=== PATIENT | female | born 1955 | race African-American/Black ===

== ENCOUNTER 2017-08-23 20:01 | Inpatient (IN) ==
--- NOTE | 2017-08-23 20:32 | Emergency Department Note ---
Arrival - Arrival Chief Complaint: Syncope Stated Complaint: Weakness, low BP ED Nursing Triage Note: Pt arrives via ems from work. Pt was using restroom and suddenly "almost passed out". Pt states that she did not actually pass out but was close. Upon arrival to ed no further complaints are voiced and she states that she feels better. 400 cc NS infused prior to arriving to ed. Pt states that she had a heart cath on 08/04/17 and was unable to have stents placed r/t 100% blockage. Denies any sob, chest pain, or other symptoms at time of triage. 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 The patient has recently been started metoprolol in addition to her valsartan pain and hydrochlorothiazide. Date of Last Menstrual Period: pm Allergies/Adverse Reactions: Allergies Allergy/AdvReac Type Severity Reaction Status Date / Time codeine Allergy Vomiting Verified 08/06/17 08:21 Home Medications: Home Medications Medication Instructions Recorded Confirmed Type Multivitamin [Multivitamins] 1 each PO DAILY 01/24/16 08/23/17 History Celecoxib [Celebrex] 200 mg PO DAILY 08/05/17 08/23/17 History Valsartan/Hydrochlorothiazide 1 each PO DAILY 08/05/17 08/23/17 History [Valsartan-Hctz 160-12.5 mg Tab] traZODone [Desyrel] 50 mg PO BEDTIME 08/05/17 08/23/17 History Metoprolol Succinate Xl [Toprol Xl] 25 mg PO DAILY #30 tablet 08/06/17 08/23/17 Rx Nitroglycerin Sl Tab [Nitrostat] 0.4 mg SL Q5M PRN #30 tablet 08/06/17 08/23/17 Rx Omeprazole 40 mg PO DAILY 08/06/17 08/23/17 History Citalopram Hydrobromide [Celexa] 10 mg PO BEDTIME 08/23/17 08/23/17 History Pravastatin [Pravachol] 40 mg PO BEDTIME 08/23/17 08/23/17 History Review of System - Review of System Constitutional: Absent: fever, night sweats, weakness Eyes: Absent: redness, vision change Head/Ears/Nose/Throat: Absent: epistaxis Respiratory: Absent: respiratory distress, wheezing Cardiovascular: Absent: dyspnea on exertion, orthopnea Gastrointestinal: Absent: nausea, vomiting, diarrhea Genitourinary female: Absent: dysuria, discharge Musculoskeletal: Absent: joint swelling, leg pain Skin: Absent: rash, lesions Neurological: Absent: numbness, paresthesias Psychiatric: Absent: anxiety, depression Endocrine: Absent: cold intolerance, fatigue Hematological/Lymphatic: Absent: easy bruising, lymphadenopathy Allergic/Immunologic: Absent: urticaria Medical,Surgical,& Family Hx - Medical History Cardio: History of: Hypertension, Cardiovascular Problems (Exertional shortness of breath and chest pain.) Neurology: No history of: Seizures Endocrine: History of: Dyslipidemia - Surgical History Reproductive Surgeries: Surgical HX of;: Tubal Ligation - Social History Smoking Status: Current every day smoker Frequency of Alcohol Use: None Type of Drug Use: None Exam Vital Signs: Vital Signs Temperature 97.2 F L 08/24/17 04:05 Pulse Rate 70 08/24/17 04:05 Respiratory Rate 18 08/24/17 04:05 Blood Pressure 118/77 08/24/17 04:05 O2 Sat by Pulse Oximetry 97 08/24/17 04:05 - General General appearance: alert - Eye Eye exam: Present: PERRL, EOMI - ENT ENT exam: Present: normal exam, normal oropharynx - Neck Neck exam: Present: normal inspection - Chest Chest inspection: Present: normal inspection - Respiratory Respiratory exam: Present: normal lung sounds bilaterally - Cardiovascular Cardiovascular exam: Present: regular rate, normal rhythm - Abdominal Exam Abdominal exam: Present: soft, normal bowel sounds - Extremities Exam Extremities exam: Present: normal inspection, full ROM - Back Exam Back exam: Present: normal inspection, full ROM - Neurological Exam Neurological exam: Present: alert, oriented X3, CN II-XII intact - Psychiatric Psychiatric exam: Present: normal affect, normal mood - Skin Skin exam: Present: warm, dry Course Course Narrative: The patient had a near syncopal episode and documented hypotension in the emergency department because of which was not completely clear but which may have been related to a combination of her blood pressure medications. Therefore seems reasonable patient should be admitted to the hospital for further evaluation treatment. The case was discussed with Dr. Miller. Orders were written for Dr. Miller. Results - Labs CBC & BMP: 08/23/17 20:13 08/23/17 20:13 Disposition Clinical Impression: Hypotension, Near syncope Disposition: Still a Patient Condition: Stable
[2017-08-23] MEDS ORDERED: SODIUM CHLORIDE 0.9% 1,000 ML IV STA (20:33)
[2017-08-23 20:39] LABS: Basophils % 0.5 % (0.0-0.8); Eosinophils # 0.1 10*3/uL (0.0-0.87); Eosinophils % 1.3 % (0.00-10.9); Hemoglobin 14.2 GM/DL (12.0-16.0); Immature Granulocytes % 0.3 %; Immature Granulocytes Absolute 0.02 #; Lymphocytes # 2.5 10*3/uL (1.4-4.0); Mean Corpuscular HGB Conc 34.6 GM/DL (32-36); Mean Corpuscular Hemoglobin 30 PG (27-34); Mean Platelet Volume 9.1 FL (9.6-12.0); Monocytes # 0.5 10*3/uL (0.11-0.8); Monocytes % 8.5 % (1.7-12.7); Neutrophils # 2.9 10*3/uL (1.4-7.4); Neutrophils % 48.4 % (38.7-73.9); Platelet Count 396 T/CUMM (130-400); Red Blood Count 4.77 MC/CUMM (3.8-5.5); Red Cell Distribution Width 11.9 % (9.3-17.3)
[2017-08-23 20:53] LABS: Alanine Aminotransferase 25 U/L (13-56); Albumin 4.4 G/DL (3.4-5.0); Alkaline Phosphatase 84 U/L (45-117); Aspartate Amino Transferase 24 U/L (0-37); Blood Urea Nitrogen 22 MG/DL (7-18); Calcium 9.1 MG/DL (8.5-10.1); Glucose 102 MG/DL (74-106); Osmolality,Calculated 264.7 MOS/KG (273-304); Potassium 3.2 MMOL/L (3.5-5.1); Sodium 131 MMOL/L (136-145); Total Protein 8.2 G/DL (6.4-8.3); Troponin I Only < 0.015 NG/ML (0.00-0.045)
[2017-08-23] MEDS ORDERED: ACETAMINOPHEN 325 MG TABLET PO PRN (22:01)
[2017-08-23] MEDS ORDERED: ONDANSETRON 4 MG/2 ML VIAL IV PRN (22:01)
[2017-08-23] MEDS: SODIUM CHLORIDE 0.9% 1,000 ML IV SCH (22:58)
--- NOTE | 2017-08-23 23:57 | Internal Med History&Physical ---
Assessment and Plan (1) Hypotension Status: Acute Current Visit: Yes Qualifiers: Hypotension type: orthostatic hypotension Qualified Code(s): I95.1 - Orthostatic hypotension (2) Near syncope Status: Acute Current Visit: Yes (3) Dyspnea on exertion Status: Acute Current Visit: No (4) Hypertension Status: Chronic Current Visit: Yes Qualifiers: Hypertension type: essential hypertension Qualified Code(s): I10 - Essential (primary) hypertension History of Present Illness Chief complaint: near syncopal episode History of present illness: Ms. Cameron is a 61 year old female patient of Dr. García with history of HTN , orthostatic hypotension, OA, who presented to ER with a near syncopal episode. She was found to have orthostatic hypotension which she reports is recurrent, renal insufficiency and mild dehydration, hypokalemia, hyponatremia. Home Medications Medication Instructions Recorded Confirmed Type Multivitamin [Multivitamins] 1 each PO DAILY 01/24/16 08/23/17 History Celecoxib [Celebrex] 200 mg PO DAILY 08/05/17 08/23/17 History Valsartan/Hydrochlorothiazide 1 each PO DAILY 08/05/17 08/23/17 History [Valsartan-Hctz 160-12.5 mg Tab] traZODone [Desyrel] 50 mg PO BEDTIME 08/05/17 08/23/17 History Metoprolol Succinate Xl [Toprol Xl] 25 mg PO DAILY #30 tablet 08/06/17 08/23/17 Rx Nitroglycerin Sl Tab [Nitrostat] 0.4 mg SL Q5M PRN #30 tablet 08/06/17 08/23/17 Rx Omeprazole 40 mg PO DAILY 08/06/17 08/23/17 History Citalopram Hydrobromide [Celexa] 10 mg PO BEDTIME 08/23/17 08/23/17 History Pravastatin [Pravachol] 40 mg PO BEDTIME 08/23/17 08/23/17 History Allergies Allergy/AdvReac Type Severity Reaction Status Date / Time codeine Allergy Vomiting Verified 08/06/17 08:21 Medical,Surgical,& Family Hx - Medical History Cardio: History of: Hypertension, Cardiovascular Problems (Exertional shortness of breath and chest pain.) Neurology: History of: Migraine No history of: Seizures Endocrine: History of: Dyslipidemia Gastrointestinal: History of: GERD Musculoskeletal: History of: Musculoskeletal Problems (osteoarthritis and on Celebrex) - Surgical History Cardiac Surgeries: Sugical HX of: Cardiac Catheterization (08/04) Reproductive Surgeries: Surgical HX of;: Tubal Ligation - Family History Family History: Reports;: Family Hypertension - Social History Smoking Status: Current every day smoker Frequency of Alcohol Use: None Type of Drug Use: None Functional capacity: independent ambulation - Constitutional Constitutional: Present: fatigue, malaise, weakness - Cardiovascular Cardiovascular: Present: dyspnea on exertion, lightheadedness - Gastrointestinal Gastrointestinal: Absent: vomiting - Musculoskeletal Musculoskeletal: Present: arthralgias - Neurological Neurological: Present: syncope (near syncope) Exam - Constitutional Vitals: Period Temp Pulse Resp BP Sys/Butt Pulse Ox Last 24 Hr 97.1 F-98.1 F 61-76 16-20 94-151/58-73 97-99 General appearance: no acute distress - Head Head exam: Present: normocephalic - Eye Eye exam: Present: EOMI - Respiratory Respiratory exam: Present: clear to auscultation bilaterally - Cardiovascular Cardiovascular exam: Present: regular rate and rhythm - GI/Abdominal GI/Abdominal exam: Present: soft. Absent: tenderness - Extremities Exam Extremities exam: Absent: edema - Neurological Exam Neurological exam: Present: alert, oriented X3 - Psychiatric Psychiatric exam: Present: normal mood - Skin Skin exam: Present: warm, dry Results - Labs CBC & BMP: 08/23/17 20:13 08/24/17 14:41 Quality Measures - VTE Contraindication to Pharmacological VTE Prophylaxis: High Risk of Bleeding
--- NOTE | 2017-08-24 07:52 | Order Completion Report ---
See report scanned to EMR
[2017-08-24] MEDS: PANTOPRAZOLE 40 MG TABLET PO SCH (09:03)
[2017-08-24] MEDS: DOCUSATE SODIUM 100 MG CAPSULE PO SCH ×2 (09:03→20:50)
[2017-08-24] MEDS: SODIUM CHLORIDE 0.9% 1,000 ML IV SCH ×2 (09:05→19:40)
--- NOTE | 2017-08-24 11:56 | Order Completion Report ---
See report scanned to EMR
--- NOTE | 2017-08-24 14:23 | Internal Med Progress Note ---
Assessment and Plan (1) Hypokalemia Status: Resolved Current Visit: Yes (2) Hyponatremia Status: Resolved Current Visit: Yes (3) Hypotension Status: Resolved Current Visit: Yes Qualifiers: Hypotension type: orthostatic hypotension Qualified Code(s): I95.1 - Orthostatic hypotension (4) Near syncope Status: Resolved Current Visit: Yes Internal Medicine - PN: Subj Interval history: Ms. Cameron is a 61 year old female patient of Dr. García with history of HTN , orthostatic hypotension, OA, who presented to ER with a near syncopal episode. She was found to have orthostatic hypotension which she reports is recurrent, renal insufficiency and mild dehydration, hypokalemia, hyponatremia. August 24: She is feeling better today. Replacing potassium, and sodium level improved today. Blood pressure remaining predominantly in normotensive range. Improved renal function and not restarting ARB nor Celebrex. Exam (Progress Note) - Constitutional Vitals: Period Temp Pulse Resp BP Sys/Butt Pulse Ox Last 24 Hr 97.1 F-98.4 F 59-76 16-20 94-154/58-77 93-99 General appearance: no acute distress - Respiratory Respiratory exam: Present: clear to auscultation bilaterally - Cardiovascular Cardiovascular exam: Present: regular rate and rhythm - GI/Abdominal GI/Abdominal exam: Present: soft. Absent: tenderness - Extremities Exam Extremities exam: Absent: edema - Neurological Exam Neurological exam: Present: alert, oriented X3 - Psychiatric Psychiatric exam: Present: normal mood - Skin Skin exam: Present: warm, dry Results - Labs CBC & BMP: 08/23/17 20:13 08/24/17 14:41 Quality Measures - VTE Contraindication to Pharmacological VTE Prophylaxis: High Risk of Bleeding
[2017-08-24] MEDS ORDERED: POTASSIUM CHLORIDE 20 MEQ TABLET PO PRN (15:38)
[2017-08-24] MEDS ORDERED: NITROGLYCERIN SL 0.4 MG TABLET SL PRN (15:39)
[2017-08-24 16:15] LABS: Calcium 8.4 MG/DL (8.5-10.1); Osmolality,Calculated 280.5 MOS/KG (273-304); Potassium 4.5 MMOL/L (3.5-5.1)
[2017-08-24] MEDS: METOPROLOL SUCCINATE XL 25 MG TABLET PO SCH (16:54)
[2017-08-24] MEDS: CITALOPRAM 20 MG TABLET PO SCH (20:50)
[2017-08-24] MEDS: traZODone 50 MG TABLET PO SCH (20:50)
[2017-08-24] MEDS ORDERED: POTASSIUM CHLORIDE 20 MEQ TABLET PO SCH (21:00)
[2017-08-25 06:46] LABS: Basophils % 0.8 % (0.0-0.8); Eosinophils # 0.1 10*3/uL (0.0-0.87); Eosinophils % 2.6 % (0.00-10.9); Hematocrit 36.3 VOL% (35.7-47.0); Hemoglobin 12.2 GM/DL (12.0-16.0); Lymphocytes # 2.5 10*3/uL (1.4-4.0); Lymphocytes % 47.5 % (21.3-54.2); Mean Corpuscular HGB Conc 33.6 GM/DL (32-36); Mean Corpuscular Hemoglobin 29 PG (27-34); Mean Corpuscular Volume 86.8 FL (87-102); Mean Platelet Volume 9.5 FL (9.6-12.0); Monocytes # 0.6 10*3/uL (0.11-0.8); Monocytes % 11.3 % (1.7-12.7); Neutrophils % 37.8 % (38.7-73.9); Platelet Count 337 T/CUMM (130-400); Red Blood Count 4.18 MC/CUMM (3.8-5.5); Red Cell Distribution Width 12.4 % (9.3-17.3); White Blood Count 5.3 T/CUMM (4-12)
[2017-08-25 07:11] LABS: Albumin 3.2 G/DL (3.4-5.0); Bilirubin,Total 0.6 MG/DL (0.2-1.0); Calcium 8.8 MG/DL (8.5-10.1); Osmolality,Calculated 291.7 MOS/KG (273-304); Potassium 4.2 MMOL/L (3.5-5.1); Total Protein 6.1 G/DL (6.4-8.3)
[2017-08-25] MEDS: ALBUTEROL/IPRATROPIUM 3 ML NEB RESP TX SCH ×3 (07:18→19:06)
[2017-08-25 07:22] LABS: 25 Hydroxy Vitamin D Total 22.4 NG/ML
[2017-08-25 07:23] LABS: Eosinophils 2 % (0-10); Hypochromasia 1+; Lymphocytes 53 % (20-55); Platelet Estimate Adequate; Segmented Neutrophils 36 % (50-85); Total Cells Counted 100
[2017-08-25 07:24] LABS: Ovalocytes Slight
[2017-08-25] MEDS: POTASSIUM CHLORIDE 20 MEQ TABLET PO SCH (08:51)
[2017-08-25] MEDS: DOCUSATE SODIUM 100 MG CAPSULE PO SCH ×2 (08:51→20:58)
[2017-08-25] MEDS: METOPROLOL SUCCINATE XL 25 MG TABLET PO SCH (08:51)
[2017-08-25] MEDS: SODIUM CHLORIDE 0.9% 1,000 ML IV SCH ×2 (08:51→17:29)
[2017-08-25] MEDS: PANTOPRAZOLE 40 MG TABLET PO SCH (08:51)
[2017-08-25] MEDS ORDERED: MAGNESIUM HYDROXIDE SUSP 30 ML UDCUP PO PRN (16:41)
--- NOTE | 2017-08-25 16:49 | Internal Med Progress Note ---
Assessment and Plan (1) Hypokalemia Status: Resolved Current Visit: Yes (2) Hyponatremia Status: Resolved Current Visit: Yes (3) Hypotension Status: Resolved Current Visit: Yes Qualifiers: Hypotension type: orthostatic hypotension Qualified Code(s): I95.1 - Orthostatic hypotension (4) Near syncope Status: Resolved Current Visit: Yes Internal Medicine - PN: Subj Interval history: Ms. Cameron is a 61 year old female patient of Dr. García with history of HTN , orthostatic hypotension, OA, who presented to ER with a near syncopal episode. She was found to have orthostatic hypotension which she reports is recurrent, renal insufficiency and mild dehydration, hypokalemia, hyponatremia. August 24: She is feeling better today. Replacing potassium, and sodium level improved today. Blood pressure remaining predominantly in normotensive range. Improved renal function and not restarting ARB nor Celebrex. August 25: She is doing better but not yet feeling well enough to go home. Will order Tylenol 1000 mg daily for shoulder pain (OA). She is asking for laxative. Ordering Milk of Magnesia. Exam (Progress Note) - Constitutional Vitals: Period Temp Pulse Resp BP Sys/Butt Pulse Ox Last 24 Hr 97.1 F-97.5 F 63-85 18-20 100-146/65-83 94-97 Exam: General appearance: no acute distress - Respiratory Respiratory exam: Present: clear to auscultation bilaterally - Cardiovascular Cardiovascular exam: Present: regular rate and rhythm - GI/Abdominal GI/Abdominal exam: Present: soft. Absent: tenderness - Extremities Exam Extremities exam: Absent: edema - Neurological Exam Neurological exam: Present: alert, oriented X3 - Psychiatric Psychiatric exam: Present: normal mood - Skin Skin exam: Present: warm, dry Results - Labs CBC & BMP: 08/25/17 06:17 08/25/17 06:17 Quality Measures - VTE Contraindication to Pharmacological VTE Prophylaxis: High Risk of Bleeding
[2017-08-25] MEDS ORDERED: SODIUM CHLORIDE 0.9% 1,000 ML IV SCH (17:04)
[2017-08-25] MEDS: traZODone 50 MG TABLET PO SCH (20:58)
[2017-08-25] MEDS: CITALOPRAM 20 MG TABLET PO SCH (20:58)
[2017-08-25] MEDS: ACETAMINOPHEN 500 MG TABLET PO SCH (20:58)
[2017-08-26] MEDS: ALBUTEROL/IPRATROPIUM 3 ML NEB RESP TX SCH ×2 (00:28→07:26)
[2017-08-26] MEDS ORDERED: METOPROLOL SUCCINATE XL 25 MG TABLET PO SCH (00:46)
[2017-08-26 04:58] LABS: Basophils % 0.7 % (0.0-0.8); Eosinophils # 0.2 10*3/uL (0.0-0.87); Eosinophils % 3.5 % (0.00-10.9); Hematocrit 34.9 VOL% (35.7-47.0); Hemoglobin 11.6 GM/DL (12.0-16.0); Lymphocytes # 3.1 10*3/uL (1.4-4.0); Lymphocytes % 57.6 % (21.3-54.2); Mean Corpuscular HGB Conc 33.2 GM/DL (32-36); Mean Corpuscular Hemoglobin 29 PG (27-34); Mean Corpuscular Volume 87.7 FL (87-102); Mean Platelet Volume 9.4 FL (9.6-12.0); Monocytes # 0.6 10*3/uL (0.11-0.8); Monocytes % 10.3 % (1.7-12.7); Neutrophils # 1.5 10*3/uL (1.4-7.4); Neutrophils % 27.9 % (38.7-73.9); Platelet Count 324 T/CUMM (130-400); Red Blood Count 3.98 MC/CUMM (3.8-5.5); Red Cell Distribution Width 12.3 % (9.3-17.3); White Blood Count 5.4 T/CUMM (4-12)
[2017-08-26 05:25] LABS: Alanine Aminotransferase 17 U/L (13-56); Albumin 3.3 G/DL (3.4-5.0); Alkaline Phosphatase 52 U/L (45-117); Aspartate Amino Transferase 13 U/L (0-37); Bilirubin,Total < 0.39 MG/DL (0.2-1.0); Blood Urea Nitrogen 23 MG/DL (7-18); Calcium 8.8 MG/DL (8.5-10.1); Glucose 80 MG/DL (74-106); Osmolality,Calculated 285.1 MOS/KG (273-304); Potassium 4.3 MMOL/L (3.5-5.1); Sodium 142 MMOL/L (136-145); Total Protein 6.1 G/DL (6.4-8.3)
[2017-08-26 06:06] LABS: Eosinophils 3 % (0-10); Giant Platelets Few; Hypochromasia 1+; Lymphocytes 53 % (20-55); Ovalocytes Slight; Platelet Estimate Adequate; Segmented Neutrophils 36 % (50-85); Total Cells Counted 100
--- NOTE | 2017-08-26 07:51 | Discharge Summary ---
Hospital Course - Hospital Course Hospital Course: Pt arrives via ems from work. Pt was using restroom and suddenly "almost passed out". Pt states that she did not actually pass out but was close. Upon arrival to ed no further complaints are voiced and she states that she feels better. 400 cc NS infused prior to arriving to ed. Pt states that she had a heart cath on 08/04/17 and was unable to have stents placed r/t 100% blockage. Denies any sob, chest pain, or other symptoms at time of admission. In view of history patient was admitted for further evaluation therapy 08/26/17 -patient was admitted hospital lab and x-ray studies obtained. Initially had some hyponatremia and hypokalemia. These were corrected with IV fluids. She was felt to have a component of volume depletion. This was corrected and her medications were modified. She also had an elevated creatinine on admission at 1.9. This created to a 1.0 at time of discharge. Her symptoms were felt to be secondary to orthostatic hypotension. Have not been able to restart her home medications. Will partially resume her medications and have patient monitor blood pressure and pulse closely. Patient is much improved at time of discharge. Will discharge to home care and follow in the clinic. Will have her call or return to emergency room condition worsening problems develop Diagnosis - Discharge Diagnosis (1) Near syncope Status: Resolved (2) Coronary artery disease with stents Status: Acute (3) Hypokalemia Status: Resolved (4) Hyponatremia Status: Resolved (5) Dyslipidemia Status: Chronic Discharge Plan - Discharge Data Disposition: Disch To Home/Self Care Condition at Discharge: Stable Discharge Diet: advance to your usual diet Activity: resume usual activities as tolerated Hygiene: no restrictions Weight Bearing at Discharge: full weight bearing Driving: no restrictions Contact your physician if you experience:: Nausea/Vomiting, Shortness of breath - Discharge Medications New hydroCHLOROthiazide [Hydrochlorothiazide] 12.5 mg PO DAILY #30 capsule Continue Multivitamin [Multivitamins] 1 each PO DAILY Celecoxib [Celebrex] 200 mg PO DAILY Omeprazole 40 mg PO DAILY Nitroglycerin Sl Tab [Nitrostat] 0.4 mg SL Q5M PRN #30 tablet PRN Reason: Chest Pain Citalopram Hydrobromide [Celexa] 10 mg PO BEDTIME traZODone [Desyrel] 50 mg PO BEDTIME Metoprolol Succinate Xl [Toprol Xl] 25 mg PO DAILY #30 tablet Pravastatin [Pravachol] 40 mg PO BEDTIME Discontinued Valsartan/Hydrochlorothiazide [Valsartan-Hctz 160-12.5 mg Tab] 1 each PO DAILY - Follow Up or Referral Follow Up: Kenny García DO [Primary Care Provider] - (Follow-up appointment in 10 days) - Forms/Instructions Exam - Constitutional Vitals: Period Temp Pulse Resp BP Sys/Butt Pulse Ox Last 24 Hr 97.1 F-98.8 F 61-78 18-20 97-146/58-78 94-98 General appearance: no acute distress - Head Head exam: Present: normal inspection - Eye Pupils: Present: GABRIELE - ENT ENT exam: Present: normal exam - Neck Neck exam: Present: normal inspection - Respiratory Respiratory exam: Present: clear to auscultation bilaterally - Cardiovascular Cardiovascular exam: Present: regular rate and rhythm - GI/Abdominal GI/Abdominal exam: Present: normal bowel sounds, soft - Extremities Exam Extremities exam: Present: normal inspection - Back Exam Back exam: Present: normal inspection - Neurological Exam Neurological exam: Present: alert, oriented X3 - Psychiatric Psychiatric exam: Present: normal affect Discharge Results Labs on day of discharge: Labs from last 24 hours 08/26/17 08/26/17 04:05 04:05 WBC 5.4 RBC 3.98 Hgb 11.6 L Hct 34.9 L MCV 87.7 MCH 29 MCHC 33.2 RDW 12.3 Plt Count 324 MPV 9.4 L Neut % (Auto) 27.9 L Lymph % (Auto) 57.6 H Bell % (Auto) 10.3 Eos % (Auto) 3.5 Baso % (Auto) 0.7 Neut # (Auto) 1.5 Lymph # (Auto) 3.1 Bell # (Auto) 0.6 Eos # (Auto) 0.2 Baso # (Auto) 0.0 Total Counted 100 Immature Gran % 0.0 Nucleated RBC % 0.0 Immature Gran # 0.00 Segmented Neutrophils 36 L Lymphocytes 53 Monocytes 8 Eosinophils 3 Nucleated RBCs # 0.00 Platelet Estimate Adequate Giant Platelets Few Immature Plt Fraction 0.0 Hypochromasia 1+ Ovalocytes Slight Sodium 142 Potassium 4.3 Chloride 108 H Carbon Dioxide 28 Anion Gap 10.3 BUN 23 H Creatinine 1.00 GFR Calculation 66 BUN/Creatinine Ratio 23.00 H Glucose 80 Calculated Osmolality 285.1 Calcium 8.8 Total Bilirubin < 0.39 AST 13 ALT 17 Alkaline Phosphatase 52 Total Protein 6.1 L Albumin 3.3 L Globulin 2.8 Albumin/Globulin Ratio 1.1 DS: Provider Date of admission: 08/23/17 22:01 Primary care physician: Kenny García DO Attending physician on admission: Kenny García DO Consults: 08/23/17 22:01 Consult to Case Mgmt/Social Srvs [CONS] Routine Reason for Case Mgmt/Social Srvs: Discharge Planning Discharging clinician: Kenny García DO
[2017-08-26 08:16] VITALS: BP 101/45
[2017-08-26] MEDS ORDERED: hydroCHLOROthiazide 12.5 MG CAPSULE PO SCH (09:00)
[2017-08-26] MEDS ORDERED: MULTIVITAMIN (CENTRUM) TABLET PO SCH (09:00)
--- NOTE | 2017-08-26 09:29 | Physician Query Form ---
CLICK EDIT DOCUMENT TO SELECT QUERY ANSWER --> OK --> SIGN Shandra Rosario RN Clinical Research Neuropsychologist W) [phone] (f) [phone] [email or web address] PROVIDERS: Make your selection(s) from the choices in EACH section by typing an "x" and enter comments in the comment section. Please use your independent medical judgment in providing your response. This request does not imply that any particular answer is desired or expected. CLINICAL INDICATORS: (Providers should not edit this section) Based on documentation of "renal insufficiency" and "she also had an elevated creatinine on admission at 1.9. This created to a 1.0 at time of discharge". Pt. treated with IV fluids of Normal Saline. Clarify which of the following most accurately represents the patient's renal status: ( ) Acute kidney injury (non-traumatic) ( ) Acute renal failure ( ) Acute renal failure with underlying Chronic Kidney Disease (CKD) - please provide stage below ( ) CKD - please provide stage below ( ) Other, please specify: ( ) Clinically unable to determine Chronic Kidney Disease Stages Source: National Kid[employer] ( ) Stage I (eGFR > or = 90) ( ) Stage II (eGFR 60 - 89) ( ) Stage III (eGFR 30 - 59) ( ) Stage IV (eGFR 15 - 29) ( ) Stage V (eGFR < 15 or dialysis) COMMENTS: PLEASE ALSO DOCUMENT RESPONSE IN PROGRESS NOTES AND/OR DISCHARGE SUMMARY Use of terms such as suspected, likely, or probable (associated with a specific diagnosis that is being evaluated, monitored, or treated as if it exists) are acceptable and can be restated in the discharge summary if not ruled out. MTDD
[2017-08-26] MEDS: DOCUSATE SODIUM 100 MG CAPSULE PO SCH (09:49)
[2017-08-26] MEDS: PANTOPRAZOLE 40 MG TABLET PO SCH (09:49)
[2017-08-26] MEDS: POTASSIUM CHLORIDE 20 MEQ TABLET PO SCH (09:49)
[2017-08-26] MEDS: ACETAMINOPHEN 500 MG TABLET PO SCH (09:50)
[2017-08-26] MEDS ORDERED: PRAVASTATIN 40 MG TABLET PO SCH (21:00)
== END 2017-08-26 10:35 | disposition home or self-care (01) | DRG 312 ==
LOC: N.ED 20:01 → N.EDINP 22:01 → N.2E 22:31
PROVIDERS: ADMIT Family Medicine; ATTEND Family Medicine

== ENCOUNTER 2020-03-08 15:24 | Observation (INO) ==
[2020-03-08] MEDS ORDERED: ALBUTEROL 2.5 MG/3 ML NEB RESP TX STA (16:53)
[2020-03-08 17:59] LABS: Basophils % 0.4 % (0.0-0.8); Eosinophils # 0.1 10*3/uL (0.0-0.87); Eosinophils % 0.6 % (0.00-10.9); Hematocrit 39.8 VOL% (35.7-47.0); Hemoglobin 13.5 GM/DL (12.0-16.0); Immature Granulocytes % 0.3 %; Immature Granulocytes Absolute 0.03 #; Lymphocytes # 2.7 10*3/uL (1.4-4.0); Lymphocytes % 24.6 % (21.3-54.2); Mean Corpuscular HGB Conc 33.9 GM/DL (32-36); Mean Corpuscular Volume 85.2 FL (87-102); Mean Platelet Volume 8.7 FL (9.6-12.0); Monocytes % 4.4 % (1.7-12.7); Neutrophils % 69.7 % (38.7-73.9); Platelet Count 422 T/CUMM (130-400); Red Blood Count 4.67 MC/CUMM (3.8-5.5); Red Cell Distribution Width 12.5 % (9.3-17.3); White Blood Count 10.8 T/CUMM (4-12)
[2020-03-08 18:11] LABS: Alanine Aminotransferase 23 U/L (13-56); Albumin 4.1 G/DL (3.4-5.0); Alkaline Phosphatase 85 U/L (45-117); Aspartate Amino Transferase 22 U/L (0-37); Blood Urea Nitrogen 13 MG/DL (7-18); Estimated Glom Filtration Rate 63 ML/MIN; Glucose 96 MG/DL (74-106); Osmolality,Calculated 267.2 MOS/KG (273-304); Total Protein 8.5 G/DL (6.4-8.3)
[2020-03-08] MEDS ORDERED: POTASSIUM CHLORIDE 20 MEQ TABLET PO STA (18:15)
[2020-03-08] MEDS ORDERED: ACETAMINOPHEN 325 MG TABLET PO PRN (19:08)
[2020-03-08] MEDS ORDERED: ONDANSETRON 4 MG/2 ML VIAL IV PRN (19:08)
[2020-03-09 00:25] LABS: Troponin I < 0.015 NG/ML (0.00-0.045)
[2020-03-09 06:31] LABS: Basophils # 0.1 10*3/uL (0.0-0.2); Basophils % 0.9 % (0.0-0.8); Eosinophils # 0.2 10*3/uL (0.0-0.87); Eosinophils % 3.4 % (0.00-10.9); Hematocrit 37.8 VOL% (35.7-47.0); Hemoglobin 12.3 GM/DL (12.0-16.0); Immature Granulocytes % 0.2 %; Immature Granulocytes Absolute 0.01 #; Lymphocytes # 3.3 10*3/uL (1.4-4.0); Lymphocytes % 58.8 % (21.3-54.2); Mean Corpuscular HGB Conc 32.5 GM/DL (32-36); Mean Corpuscular Volume 90.6 FL (87-102); Mean Platelet Volume 8.8 FL (9.6-12.0); Monocytes % 8.2 % (1.7-12.7); Neutrophils % 28.5 % (38.7-73.9); Platelet Count 388 T/CUMM (130-400); Red Blood Count 4.17 MC/CUMM (3.8-5.5); Red Cell Distribution Width 12.7 % (9.3-17.3); White Blood Count 5.6 T/CUMM (4-12)
[2020-03-09 06:49] LABS: Calcium 9.1 MG/DL (8.5-10.1); Osmolality,Calculated 273.7 MOS/KG (273-304)
[2020-03-09 06:54] LABS: Atypical Lymphocytes Few; Eosinophils 4 % (0-10); Hypochromasia 1+; Lymphocytes 67 % (20-55); Platelet Estimate Adequate; Segmented Neutrophils 24 % (50-85); Total Cells Counted 100
[2020-03-09] MEDS ORDERED: NITROGLYCERIN SL 0.4 MG TABLET SL PRN (08:29)
[2020-03-09] MEDS ORDERED: AZITHROMYCIN 250 MG TABLET PO ONE (08:45)
[2020-03-09] MEDS ORDERED: MULTIVITAMIN (CENTRUM) TABLET PO SCH (09:00)
[2020-03-09] MEDS ORDERED: ASPIRIN 325 MG TABLET PO SCH (09:00)
[2020-03-09 10:05] VITALS: BP 122/87
[2020-03-09] MEDS ORDERED: CITALOPRAM 20 MG TABLET PO SCH (21:00)
[2020-03-09] MEDS ORDERED: SIMVASTATIN 20 MG TABLET PO SCH (21:00)
[2020-03-10] MEDS ORDERED: AZITHROMYCIN 250 MG TABLET PO SCH (09:00)
== END 2020-03-09 15:32 | disposition home or self-care (01) ==
LOC: N.ED 15:24 → N.EDINP 15:24 → N.2E 20:50
PROVIDERS: ADMIT Family Medicine; ATTEND Family Medicine

== ENCOUNTER 2021-03-19 01:55 | Observation (INO) ==
[2021-03-19] MEDS ORDERED: CLINDAMYCIN INJ 600 MG/50 ML PREMIX IV STA (03:17)
[2021-03-19] MEDS: ONDANSETRON 4 MG/2 ML VIAL IV PRN ×2 (04:30→20:51)
[2021-03-19] MEDS ORDERED: ONDANSETRON 4 MG/2 ML VIAL ONE (04:37)
[2021-03-19] MEDS ORDERED: MORPHINE 4 MG/1 ML VIAL ONE (04:37)
[2021-03-19 04:55] LABS: Basophils % 0.2 % (0.0-0.8); Eosinophils # 0.2 10*3/uL (0.0-0.87); Eosinophils % 1.6 % (0.00-10.9); Hematocrit 40.4 VOL% (35.7-47.0); Hemoglobin 13.1 GM/DL (12.0-16.0); Immature Granulocytes % 0.4 %; Immature Granulocytes Absolute 0.04 #; Lymphocytes # 1.6 10*3/uL (1.4-4.0); Mean Corpuscular HGB Conc 32.4 GM/DL (32-36); Mean Platelet Volume 8.9 FL (9.6-12.0); Monocytes % 8.1 % (1.7-12.7); Neutrophils % 73.7 % (38.7-73.9); Platelet Count 397 T/CUMM (130-400); Red Blood Count 4.44 MC/CUMM (3.8-5.5); White Blood Count 9.9 T/CUMM (4-12)
[2021-03-19] MEDS ORDERED: ONDANSETRON 4 MG/2 ML VIAL IV ONE (04:59)
[2021-03-19] MEDS ORDERED: MORPHINE 4 MG/1 ML VIAL IV STA (04:59)
[2021-03-19] MEDS ORDERED: ACETAMINOPHEN 325 MG TABLET PO PRN (05:02)
[2021-03-19 05:29] LABS: Albumin 3.6 G/DL (3.4-5.0); Bilirubin,Total 0.5 MG/DL (0.2-1.0); Calcium 9.2 MG/DL (8.5-10.1); Osmolality,Calculated 279.4 MOS/KG (273-304); Potassium 3.6 MMOL/L (3.5-5.1); Total Protein 7.6 G/DL (6.4-8.2)
[2021-03-19] MEDS: PANTOPRAZOLE 40 MG TABLET PO SCH (09:55)
[2021-03-19] MEDS ORDERED: CLINDAMYCIN INJ 300 MG/50 ML PREMIX IV SCH (10:30)
[2021-03-19] MEDS ORDERED: NITROGLYCERIN SL 0.4 MG TABLET SL PRN (14:45)
[2021-03-19] MEDS ORDERED: ZALEPLON 5 MG CAPSULE PO PRN (15:50)
[2021-03-19] MEDS: CLINDAMYCIN INJ 600 MG/50 ML PREMIX IV SCH (16:35)
[2021-03-19] MEDS: traMADol 50 MG TABLET PO PRN (16:59)
[2021-03-19] MEDS: MORPHINE 4 MG/1 ML VIAL IV PRN (20:50)
[2021-03-19] MEDS: CITALOPRAM 20 MG TABLET PO SCH (22:00)
[2021-03-19] MEDS: traZODone 50 MG TABLET PO SCH (22:00)
[2021-03-19] MEDS: SIMVASTATIN 20 MG TABLET PO SCH (22:00)
[2021-03-20] MEDS: CLINDAMYCIN INJ 600 MG/50 ML PREMIX IV SCH (01:26)
[2021-03-20] MEDS: MORPHINE 4 MG/1 ML VIAL IV PRN ×2 (01:45→19:28)
[2021-03-20] MEDS ORDERED: cefTRIAXone 2,000 MG in SODIUM CHLORIDE 0.9% 100 ML IV SCH (08:00)
[2021-03-20 08:46] LABS: Basophils % 0.3 % (0.0-0.8); Eosinophils # 0.2 10*3/uL (0.0-0.87); Eosinophils % 2.3 % (0.00-10.9); Hematocrit 37.9 VOL% (35.7-47.0); Hemoglobin 12.2 GM/DL (12.0-16.0); Immature Granulocytes % 0.3 %; Immature Granulocytes Absolute 0.02 #; Lymphocytes # 2.2 10*3/uL (1.4-4.0); Lymphocytes % 30.1 % (21.3-54.2); Mean Corpuscular HGB Conc 32.2 GM/DL (32-36); Mean Corpuscular Volume 91.8 FL (87-102); Mean Platelet Volume 8.8 FL (9.6-12.0); Monocytes % 8.7 % (1.7-12.7); Neutrophils % 58.3 % (38.7-73.9); Platelet Count 362 T/CUMM (130-400); Red Blood Count 4.13 MC/CUMM (3.8-5.5); Red Cell Distribution Width 11.9 % (9.3-17.3); White Blood Count 7.2 T/CUMM (4-12)
[2021-03-20 09:57] LABS: Sedimentation Rate-Westergren 60 MM/HR (0-30)
[2021-03-20] MEDS: PIPERACILLIN/TAZOBACTAM 3,375 MG in SODIUM CHLORIDE 0.9% 100 ML IV SCH ×2 (11:03→17:03)
[2021-03-20] MEDS: PANTOPRAZOLE 40 MG TABLET PO SCH (11:03)
[2021-03-20] MEDS: hydroCHLOROthiazide 25 MG TABLET PO SCH (11:04)
[2021-03-20] MEDS: ASPIRIN 325 MG TABLET PO SCH (11:04)
[2021-03-20] MEDS: MULTIVITAMIN (CENTRUM) TABLET PO SCH (11:04)
[2021-03-20] MEDS: METOPROLOL SUCCINATE XL 25 MG TABLET PO SCH (11:04)
[2021-03-20] MEDS: amLODIPine 5 MG TABLET PO SCH (11:04)
[2021-03-20] MEDS ORDERED: CLINDAMYCIN INJ 600 MG/50 ML PREMIX IV SCH (12:00)
[2021-03-20] MEDS: ONDANSETRON 4 MG/2 ML VIAL IV PRN (19:35)
[2021-03-20] MEDS: CITALOPRAM 20 MG TABLET PO SCH (20:40)
[2021-03-20] MEDS: SIMVASTATIN 20 MG TABLET PO SCH (20:40)
[2021-03-20] MEDS: traZODone 50 MG TABLET PO SCH (20:40)
[2021-03-20] MEDS: CHLORHEXIDINE 0.12% ORAL RINSE 60 ML BOTTLE SWISH/SPIT SCH (20:43)
[2021-03-21] MEDS: PIPERACILLIN/TAZOBACTAM 3,375 MG in SODIUM CHLORIDE 0.9% 100 ML IV SCH ×2 (00:11→08:10)
[2021-03-21 05:46] LABS: Basophils % 0.6 % (0.0-0.8); Eosinophils # 0.2 10*3/uL (0.0-0.87); Eosinophils % 4.3 % (0.00-10.9); Hematocrit 35.3 VOL% (35.7-47.0); Hemoglobin 11.5 GM/DL (12.0-16.0); Immature Granulocytes % 0.2 %; Immature Granulocytes Absolute 0.01 #; Lymphocytes # 2.2 10*3/uL (1.4-4.0); Lymphocytes % 40.8 % (21.3-54.2); Mean Corpuscular HGB Conc 32.6 GM/DL (32-36); Mean Corpuscular Volume 91.5 FL (87-102); Mean Platelet Volume 9.1 FL (9.6-12.0); Monocytes % 9.4 % (1.7-12.7); Neutrophils % 44.7 % (38.7-73.9); Platelet Count 346 T/CUMM (130-400); Red Blood Count 3.86 MC/CUMM (3.8-5.5); White Blood Count 5.3 T/CUMM (4-12)
[2021-03-21 06:07] LABS: Alanine Aminotransferase 15 U/L (13-56); Alkaline Phosphatase 65 U/L (45-117); Aspartate Amino Transferase 17 U/L (0-37); Bilirubin,Total < 0.39 MG/DL (0.2-1.0); Blood Urea Nitrogen 18 MG/DL (7-18); Calcium 8.8 MG/DL (8.5-10.1); Carbon Dioxide 30 MMOL/L (21-32); Estimated Glom Filtration Rate 56 ML/MIN; Glucose 100 MG/DL (74-106); Osmolality,Calculated 284.1 MOS/KG (273-304); Potassium 3.9 MMOL/L (3.5-5.1); Sodium 142 MMOL/L (136-145); Total Protein 6.5 G/DL (6.4-8.2)
[2021-03-21 06:08] LABS: Atypical Lymphocytes Few; Eosinophils 4 % (0-10); Lymphocytes 40 % (20-55); Segmented Neutrophils 49 % (50-85); Total Cells Counted 100
[2021-03-21 06:09] LABS: Anisocytosis 1+; Hypochromasia 1+
[2021-03-21 06:10] LABS: Platelet Estimate Normal
[2021-03-21 07:14] VITALS: BP 139/89
[2021-03-21] MEDS: MULTIVITAMIN (CENTRUM) TABLET PO SCH (08:01)
[2021-03-21] MEDS: METOPROLOL SUCCINATE XL 25 MG TABLET PO SCH (08:01)
[2021-03-21] MEDS: ASPIRIN 325 MG TABLET PO SCH (08:01)
[2021-03-21] MEDS: traMADol 50 MG TABLET PO PRN (08:01)
[2021-03-21] MEDS: amLODIPine 5 MG TABLET PO SCH (08:01)
[2021-03-21] MEDS: hydroCHLOROthiazide 25 MG TABLET PO SCH (08:01)
[2021-03-21] MEDS: CHLORHEXIDINE 0.12% ORAL RINSE 60 ML BOTTLE SWISH/SPIT SCH (08:02)
[2021-03-21] MEDS ORDERED: AMOXICILLIN/CLAV 875 MG TABLET PO SCH (08:30)
[2021-03-21] MEDS: PANTOPRAZOLE 40 MG TABLET PO SCH (10:11)
== END 2021-03-21 10:56 | disposition home or self-care (01) ==
LOC: N.EDINP 01:55 → N.ED 01:55 → N.3E 03-20 07:28
PROVIDERS: ADMIT Family Medicine; ATTEND Family Medicine